=== PATIENT | male | born 1985 | race American Indian/Alaskan Native ===

== ENCOUNTER 2019-04-23 12:13 | Emergency (ER) | payer OTHER ==
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
[2019-04-23] MEDS ORDERED: IBUPROFEN PO ONE (13:13)
[2019-04-23 13:53] VITALS: BP 126/80
== END 2019-04-23 13:53 | disposition home or self-care (01) ==
LOC: ED 12:13
DX: M54.5 Low back pain (principal); V89.2XXA Person injured in unspecified motor-vehicle accident, traffic, initial encounter; Y93.89 Activity, other specified; Y92.410 Unspecified street and highway as the place of occurrence of the external cause; Y99.8 Other external cause status
CPT/HCPCS: 72100